=== PATIENT | female | born 1995 | race African-American/Black ===

== ENCOUNTER 2018-02-13 17:12 | Emergency (ER) | payer SELFPAY ==
[2018-02-13 18:44] LABS: Urine Blood NEGATIVE (NEG); Urine Glucose NEGATIVE (NEG); Urine Protein NEGATIVE (NEG)
--- NOTE | 2018-02-13 18:46 | RAD REPORT ---
EXAM DESCRIPTION: Kenneth Adams (2 Views)02/13/2018 6:36 pm CLINICAL HISTORY: Chest pain COMPARISON: None FINDINGS: The lungs appear clear of acute infiltrate. The heart is normal size IMPRESSION: No acute abnormalities displayed
--- NOTE | 2018-02-13 18:47 | RAD REPORT ---
EXAM DESCRIPTION: RAD - Lumbar Spine 3 Views - 02/13/2018 6:36 pm CLINICAL HISTORY: Back pain FINDINGS: The alignment of the lumbar spine is satisfactory. No fracture or dislocation is seen.
[2018-02-13] MEDS ORDERED: KETOROLAC 30 MG/ML INJ ONE (19:01)
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
== END 2018-02-13 19:26 | disposition home or self-care (01) ==
LOC: ER 17:12
DX: R07.89 Other chest pain (principal); V49.59XA Passenger injured in collision with other motor vehicles in traffic accident, initial encounter
CPT/HCPCS: 71046; 72100; 81003; 81025; 96372; 99284